=== PATIENT | male | born 1995 | race Caucasian/White ===

== ENCOUNTER 2017-11-09 17:19 | Emergency (ER) | payer OTHER ==
[~2017-11-09 17:19] MED LIST: ISOVUE-370 76%-LOCM 1 ML ONE
[2017-11-09] MEDS ORDERED: Fentanyl 100 MCG/2 ML VIAL ONE (17:22)
[2017-11-09] MEDS ORDERED: CEFAZOLIN/Water 2 GM/20 ML SYRINGE ONE (17:24)
[2017-11-09] MEDS ORDERED: Adacel (T-DAP) 0.5 ML VIAL ONE (17:24)
[2017-11-09] MEDS ORDERED: Lidocaine 1% w/Epinephrine 1:100K 20 ML VIAL ONE (17:29)
[2017-11-09 17:55] LABS: #Basophils 0.1 thou/uL (0.0-0.2); #Eosinphils 0.1 thou/uL (0.0-0.7); #Monocytes 1.2 thou/uL (0.11-0.59); #Neutrophils 8.5 thou/uL (1.40-6.50); %Basophils 0.4 % (0.0-1.0); %Eosinophils 0.7 % (0.0-10.0); %Lymphocytes 16.6 % (21.0-51.0); %Monocytes 9.9 % (0.0-10.0); %Neutrophils 72.3 % (42.0-75.0); Hemoglobin 17.2 g/dL (14.0-18.0); Mean Corpuscular HGB CONC 33.4 g/dL (32.0-36.0); Mean Corpuscular Hemoglobin 31.2 pg (27.0-31.0); Mean Corpuscular Volume 93.7 fL (78.0-98.0); Mean Platelet Volume 7.4 fL (7.4-10.4); Platelet Count 253 thou/uL (130-400); RBC Distribution Width 11.9 % (11.5-14.5); Red Blood Cell (RBC) Count 5.51 mill/uL (4.70-6.10); White Blood Cell (WBC) Count 11.8 thou/uL (4.8-10.8)
[2017-11-09 18:03] LABS: Prothrombin Time 13.2 SEC (12.0-14.7)
[2017-11-09 18:06] LABS: ALT (SGPT) 20 U/L (8-55); AST (SGOT) 25 U/L (5-34); Albumin 4.8 g/dL (3.5-5.0); Alkaline Phosphatase 76 U/L (40-150); Anion Gap 12 mmol/L (10-20); BUN (Urea Nitrogen) 5 mg/dL (8.9-20.6); Bilirubin, Total 0.8 mg/dL (0.2-1.2); Calc. Creatinine Clearance 0 mL/min (70-130); Calcium 9.9 mg/dL (7.8-10.44); Carbon Dioxide 25 mmol/L (22-29); Chloride 105 mmol/L (98-107); Estimated GFR-MDRD 67; Globulin 2.7 g/dL (2.4-3.5); Glucose 107 mg/dL (70-105); Potassium 4.3 mmol/L (3.5-5.1); Protein, Total 7.5 g/dL (6.0-8.3); Sodium 138 mmol/L (136-145)
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
[2017-11-09] MEDS ORDERED: Bacitracin Zinc 1 Packet ONE ×2 (18:47)
== END 2017-11-09 19:20 | disposition home or self-care (01) ==
LOC: ERS 17:19
DX: S81.811A Laceration without foreign body, right lower leg, initial encounter (principal); S70.312A Abrasion, left thigh, initial encounter; S80.211A Abrasion, right knee, initial encounter; S20.419A Abrasion of unspecified back wall of thorax, initial encounter; F17.210 Nicotine dependence, cigarettes, uncomplicated; Z79.899 Other long term (current) drug therapy; Z23 Encounter for immunization; V89.2XXA Person injured in unspecified motor-vehicle accident, traffic, initial encounter
CPT/HCPCS: 12002; 12032; 70450; 71045; 71260; 72125; 74177; 80053; 85025; 85610; 85730; 86850; 86900; 86901; 90471; 90715; 96374; 96375; G0390; J2001; J3010